=== PATIENT | female | born 1955 | race Caucasian/White ===

== ENCOUNTER → 2016-09-13 | Outpatient (CLI) | payer OTHER ==
[~2016-09-13] MED LIST: ALAV10TA PO; ALPR2TAB3 PO; ASPI81 PO; CYCL-36 PO; FLEC50TA PO; FURO1TAB93 PO; LORTA5 PO; MOBI15TA PO; NAPR500 PO; POTA10CA26 PO; PRAV40TA PO; RAMI10CA PO
[2016-09-13 17:35] LABS: INDIRECT BILIRUBIN 0.3 MG/DL (0.0-0.8); TOTAL BILIRUBIN ADULT 0.5 MG/DL (0.2-1.0)
== END ==
LOC: PLAB 14:33
PROVIDERS: ATTEND Family Medicine
DX: R94.5 Abnormal results of liver function studies (principal)
CPT/HCPCS: 36415; 80076

== ENCOUNTER → 2017-01-10 | Outpatient (CLI) | payer OTHER ==
[2017-01-10 13:00] LABS: HEMATOCRIT 41.9 % (35.0-46.0); MEAN CELL VOLUME 85.2 FL (80.0-100.0); MEAN CORPUSCULAR HEMOGLOBIN 27.5 PG (27.0-34.0); MEAN CORPUSCULAR HGB CONC 32.3 % (32.0-36.0); PLATELET COUNT 209 TH/MM3 (150-450); RED BLOOD COUNT 4.92 MIL/MM3 (4.00-5.30); RED CELL DISTRIBUTION WIDTH 14.4 % (11.6-17.2); REVIEW FLAG FINAL; WHITE BLOOD COUNT 7.9 TH/MM3 (4.0-11.0)
[2017-01-10 13:36] LABS: ALT (GPT) 48 U/L (10-53); ANION GAP 7 MEQ/L (5-15); AST (GOT) 33 U/L (15-37); BICARBONATE 29.2 MEQ/L (21.0-32.0); BLOOD UREA NITROGEN 15 MG/DL (7-18); CHLORIDE 105 MEQ/L (98-107); GLOMERULAR FILTRATION RATE 62 ML/MIN (>89); GLUCOSE,FASTING 92 MG/DL (74-99); POTASSIUM 3.8 MEQ/L (3.5-5.1); SODIUM (NA) 141 MEQ/L (136-145)
[2017-01-10 13:45] LABS: ALKALINE PHOSPHATASE 83 U/L (45-117); HDL CHOLESTEROL 50.5 MG/DL (40.0-60.0); LDL CHOLESTEROL 85 MG/DL (0-99); TOTAL BILIRUBIN ADULT 0.4 MG/DL (0.2-1.0)
== END ==
LOC: PLAB 11:37
PROVIDERS: ATTEND Family Medicine
DX: I10 Essential (primary) hypertension (principal); E78.5 Hyperlipidemia, unspecified; I47.1 Supraventricular tachycardia; R73.02 Impaired glucose tolerance (oral); Z68.41 Body mass index [BMI] 40.0-44.9, adult
CPT/HCPCS: 80053; 80061; 84443; 85027

== ENCOUNTER → 2017-04-26 | Outpatient (CLI) | payer OTHER ==
[2017-04-26 16:14] LABS: AUTOMATED NEUTROPHIL # 5.8 TH/MM3 (1.8-7.7); BASOPHIL # 0.1 TH/MM3 (0-0.2); BASOPHIL % 0.6 % (0.0-2.0); EOSINOPHIL # 0.3 TH/MM3 (0-0.4); EOSINOPHIL % 3.2 % (0.0-4.0); HEMATOCRIT 44.6 % (35.0-46.0); HEMO FLAGS DIFF FINAL; LYMPH % 23.4 % (9.0-44.0); LYMPHOCYTE # 2.1 TH/MM3 (1.0-4.8); MEAN CELL VOLUME 86.3 FL (80.0-100.0); MEAN CORPUSCULAR HEMOGLOBIN 27.9 PG (27.0-34.0); MEAN CORPUSCULAR HGB CONC 32.4 % (32.0-36.0); MONO % 8.7 % (0.0-8.0); NEUT % 64.1 % (16.0-70.0); PLATELET COUNT 248 TH/MM3 (150-450); RED BLOOD COUNT 5.17 MIL/MM3 (4.00-5.30); RED CELL DISTRIBUTION WIDTH 13.9 % (11.6-17.2); WHITE BLOOD COUNT 9.1 TH/MM3 (4.0-11.0)
[2017-04-26 16:37] LABS: ALT (GPT) 39 U/L (10-53); ANION GAP 9 MEQ/L (5-15); AST (GOT) 29 U/L (15-37); BICARBONATE 27.1 MEQ/L (21.0-32.0); BLOOD UREA NITROGEN 14 MG/DL (7-18); CHLORIDE 105 MEQ/L (98-107); GLOMERULAR FILTRATION RATE 55 ML/MIN (>89); GLUCOSE,FASTING 104 MG/DL (74-99); POTASSIUM 3.8 MEQ/L (3.5-5.1); SODIUM (NA) 141 MEQ/L (136-145)
[2017-04-26 16:46] LABS: ALKALINE PHOSPHATASE 83 U/L (45-117); HDL CHOLESTEROL 51.4 MG/DL (40.0-60.0); LDL CHOLESTEROL 97 MG/DL (0-99); TOTAL BILIRUBIN ADULT 0.4 MG/DL (0.2-1.0)
[2017-04-26 18:00] LABS: HEMOGLOBIN A1a 1.1 %; HEMOGLOBIN A1b 1.1 %; HEMOGLOBIN Ao 83.9 %; HEMOGLOBIN LA1C 2.1 %; HEMOGLOBIN P3 3.9 %
== END ==
LOC: PLAB 11:43
PROVIDERS: ATTEND Internal Medicine Cardiovascular Disease
DX: I10 Essential (primary) hypertension (principal); I48.0 Paroxysmal atrial fibrillation; E78.5 Hyperlipidemia, unspecified; I47.1 Supraventricular tachycardia; R73.02 Impaired glucose tolerance (oral); R94.5 Abnormal results of liver function studies; E66.9 Obesity, unspecified; Z79.899 Other long term (current) drug therapy; Z68.41 Body mass index [BMI] 40.0-44.9, adult
CPT/HCPCS: 80053; 80061; 83036; 84443; 85025

== ENCOUNTER → 2017-09-20 | Outpatient (CLI) | payer OTHER ==
[2017-09-20 13:49] LABS: HEMATOCRIT 41.7 % (35.0-46.0); HEMOGLOBIN 13.8 GM/DL (11.6-15.3); MEAN CELL VOLUME 87.5 FL (80.0-100.0); MEAN CORPUSCULAR HGB CONC 33.2 % (32.0-36.0); MEAN PLATELET VOLUME 8.5 FL (7.0-11.0); PLATELET COUNT 246 TH/MM3 (150-450); RED BLOOD COUNT 4.76 MIL/MM3 (4.00-5.30); RED CELL DISTRIBUTION WIDTH 14.4 % (11.6-17.2); WHITE BLOOD COUNT 8.9 TH/MM3 (4.0-11.0)
[2017-09-20 14:20] LABS: ALBUMIN 3.6 GM/DL (3.4-5.0); AST (GOT) 20 U/L (15-37); BLOOD UREA NITROGEN 19 MG/DL (7-18); CALCIUM 8.8 MG/DL (8.5-10.1); CHLORIDE 106 MEQ/L (98-107); CHOLESTEROL 151 MG/DL (120-200); CREATININE 1.07 MG/DL (0.50-1.00); GLOMERULAR FILTRATION RATE 52 ML/MIN (>89); GLUCOSE,FASTING 127 MG/DL (74-99); SODIUM (NA) 140 MEQ/L (136-145)
[2017-09-20 14:27] LABS: ALKALINE PHOSPHATASE 86 U/L (45-117); ALT (GPT) 35 U/L (10-53); CHOLESTEROL/ HDL RATIO 2.89 RATIO; HDL CHOLESTEROL 52.1 MG/DL (40.0-60.0); LDL CHOLESTEROL 87 MG/DL (0-99); TOTAL BILIRUBIN ADULT 0.4 MG/DL (0.2-1.0); TOTAL PROTEIN 7.3 GM/DL (6.4-8.2); TRIGLYCERIDES 59 MG/DL (42-150)
[2017-09-20 18:53] LABS: HEMOGLOBIN A1C 6.4 % (4.3-6.0)
== END ==
LOC: PLAB 09:47
PROVIDERS: ATTEND Family Medicine
DX: R92.8 Other abnormal and inconclusive findings on diagnostic imaging of breast (principal); I10 Essential (primary) hypertension; E78.5 Hyperlipidemia, unspecified; I47.1 Supraventricular tachycardia; R73.02 Impaired glucose tolerance (oral); R94.5 Abnormal results of liver function studies; Z68.42 Body mass index [BMI] 45.0-49.9, adult
CPT/HCPCS: 36415; 80053; 80061; 83036; 84443; 85027

== ENCOUNTER → 2017-12-23 | Outpatient (CLI) | payer OTHER ==
[2017-12-23 13:34] LABS: CALCIUM 9.7 MG/DL (8.5-10.1)
[2017-12-23 13:38] LABS: PHOSPHORUS 3.1 MG/DL (2.5-4.9)
== END ==
LOC: CLAB 12:35
PROVIDERS: ATTEND Family Medicine
DX: M81.8 Other osteoporosis without current pathological fracture (principal); M85.9 Disorder of bone density and structure, unspecified; E55.9 Vitamin D deficiency, unspecified; M81.0 Age-related osteoporosis without current pathological fracture
CPT/HCPCS: 36415; 82306; 82310; 84100

== ENCOUNTER → 2018-02-06 | Outpatient (CLI) | payer OTHER ==
[2018-02-06 11:40] LABS: BASOPHIL # 0.1 TH/MM3 (0-0.2); EOSINOPHIL # 0.2 TH/MM3 (0-0.4); EOSINOPHIL % 3.4 % (0.0-4.0); HEMATOCRIT 41.9 % (35.0-46.0); HEMOGLOBIN 13.8 GM/DL (11.6-15.3); LYMPH % 29.2 % (9.0-44.0); LYMPHOCYTE # 2.1 TH/MM3 (1.0-4.8); MEAN CELL VOLUME 85.4 FL (80.0-100.0); MEAN CORPUSCULAR HEMOGLOBIN 28.1 PG (27.0-34.0); MEAN CORPUSCULAR HGB CONC 32.9 % (32.0-36.0); MONO % 10.8 % (0.0-8.0); MONOCYTE # 0.8 TH/MM3 (0-0.9); NEUT % 55.6 % (16.0-70.0); PLATELET COUNT 226 TH/MM3 (150-450); RED BLOOD COUNT 4.91 MIL/MM3 (4.00-5.30); RED CELL DISTRIBUTION WIDTH 14.4 % (11.6-17.2); WHITE BLOOD COUNT 7.1 TH/MM3 (4.0-11.0)
[2018-02-06 12:04] LABS: ALBUMIN 3.5 GM/DL (3.4-5.0); BICARBONATE 25.9 MEQ/L (21.0-32.0); BLOOD UREA NITROGEN 20 MG/DL (7-18); CALCIUM 8.8 MG/DL (8.5-10.1); CHLORIDE 108 MEQ/L (98-107); GLUCOSE,FASTING 110 MG/DL (74-99); SODIUM (NA) 143 MEQ/L (136-145)
[2018-02-06 12:15] LABS: ALKALINE PHOSPHATASE 75 U/L (45-117); ALT (GPT) 30 U/L (10-53); AST (GOT) 19 U/L (15-37); CHOLESTEROL 153 MG/DL (120-200); CHOLESTEROL/ HDL RATIO 3.24 RATIO; CREATININE 0.96 MG/DL (0.50-1.00); GLOMERULAR FILTRATION RATE 59 ML/MIN (>89); HDL CHOLESTEROL 47.1 MG/DL (40.0-60.0); LDL CHOLESTEROL 87 MG/DL (0-99); TOTAL BILIRUBIN ADULT 0.4 MG/DL (0.2-1.0); TOTAL PROTEIN 7.1 GM/DL (6.4-8.2); TRIGLYCERIDES 97 MG/DL (42-150)
[2018-02-06 16:17] LABS: HEMOGLOBIN A1C 6.3 % (4.3-6.0)
== END ==
LOC: CLAB 10:49
PROVIDERS: ATTEND Family Medicine
DX: K21.0 Gastro-esophageal reflux disease with esophagitis (principal); R73.01 Impaired fasting glucose; E78.2 Mixed hyperlipidemia; I10 Essential (primary) hypertension
CPT/HCPCS: 36415; 80053; 80061; 83036; 84443; 85025

== ENCOUNTER 2018-04-06 05:25 | Inpatient (IN) ==
[2018-04-06] MEDS ORDERED: ceFAZolin 2 GM Premix Inj 2 GM/50 ML PIGGYBACK IV.SIG SCH (06:00)
[2018-04-06] MEDS ORDERED: Vancomycin Inj 1 GM/200 ML PIGGYBACK IV.SIG SCH (06:00)
[2018-04-06] MEDS ORDERED: Sodium Chlor 0.9% Inj 500 ML IV.SIG SCH (06:00)
[2018-04-06] MEDS ORDERED: Chlorhexidine 4% Topical 120 APPLIC/120 ML Bottle TOPICAL SCH (06:00)
[2018-04-06] MEDS ORDERED: Metoprolol Tartrate 25 MG Tablet PO SCH (06:00)
[2018-04-06] MEDS ORDERED: Chlorhexidine Gluconate 2% 1 Pack (2 Cloths) TOPICAL SCH (06:00)
[2018-04-06] MEDS ORDERED: Bupivacaine/Epinephrine Inj 0.25% 50 ML Vial ONE (07:04)
[2018-04-06] MEDS ORDERED: Bupivacaine/Dextrose 0.75% Inj 2 ML Ampul ONE (07:26)
[2018-04-06] MEDS ORDERED: TRANEXAMIC ACID IV.SIG SCH (07:30)
[2018-04-06] MEDS ORDERED: Sodium Chlor 0.9% Inj 40 ML, Bupivacaine Liposo PF 1.3% Inj 20 ML P-ARTICULR SCH ×2 (07:30)
[2018-04-06] MEDS ORDERED: SODIUM CHLOR 0.9% IV.SIG SCH (07:30)
[2018-04-06] MEDS ORDERED: ALPRAZolam 0.25 MG Tablet PO PRN (09:47)
[2018-04-06] MEDS ORDERED: Morphine Inj 4 MG/ML Vial IV.PUSH PRN (09:49)
[2018-04-06] MEDS ORDERED: Bisacodyl 10 MG Supp RECTAL PRN (09:49)
[2018-04-06] MEDS ORDERED: Post-op Orders (for Pharmacy) OTHER STA (09:49)
[2018-04-06] MEDS ORDERED: oxyCODONE/Acetaminophen 10/325 Tablet PO PRN (09:49)
--- NOTE | 2018-04-06 10:02 | P.OP ---
- Preoperative Diagnosis (1) Osteoarthritis of left knee - Postoperative Diagnosis (1) Osteoarthritis of left knee Date of procedure: 04/06/18 Procedure: Left total knee replacement arthroplasty Anesthesia: regional, spinal Surgeon: Pepe Malik MD Customer Pricing Manager: Kareen Sebastian PA-C Operation and Findings: EBL: 50 cc INDICATION: This patient presents with long-standing arthritis of the knee. Attachment record documents conservative measures. The patient now presents for surgical treatment. NOTE: Kareen Sebastian PA-C was present for the entire surgical procedure as my rn first assist. In my medical opinion her skill and care was necessary for proper management of this patient. TOURNIQUET TIME: 75 minutes COMPANY: [employer] FEMUR: Size 6, posterior stabilized TIBIA: Size 5, fixed-bearing PATELLA: 32 mm POLYETHYLENE INSERT: 14 mm PROCEDURE: This patient was brought the operating room and anesthetized in the supine position. The patient was positioned supine on the table. The tourniquet was placed about the thigh, and the leg was scrubbed with alcohol followed by Hibiclens followed by ChloraPrep and draped sterilely. A timeout was done, and antibiotics were given. After exsanguination the tourniquet was inflated to 300 mmHg. An anterior incision was made and a median parapatellar arthrotomy was performed. The patella was released laterally and subluxed allowing freehand cut of the patella which was then sized. A metal cap was placed over the exposed patellar surface for protection. A oversize load pilot escort hole was placed in the distal femur allowing a 4 valgus cut removing 10 mm from the distal femur. Anterior posterior and chamfer cuts were made. The posterior stabilize osteotomy was made. The attention was directed to the tibia. Retractors were positioned. The external alignment guide was used allowing the lateral tibia to be used as referencing guide and cut utilizing an oscillating saw taking care to avoid any injury to the surrounding soft tissues. This was sized properly. Trial reduction showed that the insert fit nicely. The patient had range of motion extension 0 flexion 110 . A medial release was not necessary. The bony surfaces prepared. On the back table 2 packets of methylmethacrylate were mixed. The components were cemented. Excess cement was removed. The tourniquet let down and hemostasis was controlled. The final plastic insert was inserted. Range of motion was the same as previously noted. A drain was brought through a separate stab incision. The arthrotomy was repaired with interrupted #1 Vicryl suture, subcutaneous tissue 2-0 Vicryl suture and skin with metallic jose armando A sterile dressing was applied. Sponge counts, needle counts and instrument counts were all correct. The patient tolerated procedure well and was taken to recovery in satisfactory condition. FINDINGS: There was severe circumferential tricompartmental osteoarthritis. There was a 15 flexion contracture. The final solution appeared to be excellent
--- NOTE | 2018-04-06 10:03 | P.DCO ---
- Physical Therapy Physical Therapy: Gait training Knee: Total knee, Protocol: Left, Full weight bearing Canvas Knee Splint: Other (At night for 4 weeks) Right Lower Extremity Range of Motion: Active ROM Left Lower Extremity Weight Bearing: Weight bearing as tolerated - Nursing RN: 3 days/week x 2 weeks Dressing changes: Do not change dressing, Other - Certification Need for Home Health services: I have seen patient Susie Headley on 04/06/18. My clinical findings support the need for the requested home health care services because: Need for Home Health Services: Limited mobility due to disease progression Homebound Certification: I certify that my clinical findings support that this patient is homebound because:
[2018-04-06] MEDS ORDERED: fentaNYL Citrate Inj 100 MCG/2 ML Ampul ONE (10:34)
--- NOTE | 2018-04-06 11:10 | XR ---
EXAM DATE: 04/06/2018 10:56 AM EDT AGE/SEX: 62 years / Female INDICATIONS: Post op left knee. CLINICAL DATA: This is the patient's initial encounter. Patient reports that signs and symptoms have been present for 1 day and indicates a pain score of Nonresponsive. MEDICAL/SURGICAL HISTORY: None. None. COMPARISON: No prior exams available for comparison. FINDINGS: The patient is post left knee arthroplasty. The orthopedic hardware is in excellent position. There a re surgical jose armando in place. CONCLUSION: Patient is post left knee arthroplasty. Orthopedic hardware is in excellent position. Electronically signed by: David De La Paz MD 04/06/2018 11:08 AM EDT
[2018-04-06] MEDS: oxyCODONE/Acetaminophen 10/325 Tablet PO PRN ×2 (14:48→20:25)
[2018-04-06] MEDS ORDERED: Phenylephrine/NS 1000 MCG/10ML Syringe IV.PUSH ONE (17:13)
[2018-04-06] MEDS: Flecainide 100 MG Tablet PO SCH (20:24)
[2018-04-06] MEDS: Senna/Docusate Sodium 8.6/50 MG Tablet PO SCH (20:24)
[2018-04-06] MEDS: Multivitamin/Minerals Therapeutic Tablet PO SCH (20:26)
[2018-04-06] MEDS: Furosemide 40 MG Tablet PO SCH (20:26)
[2018-04-06] MEDS ORDERED: Ramipril 5 MG Capsule PO SCH (21:00)
[2018-04-06] MEDS ORDERED: Temazepam 15 MG Capsule PO PRN (21:00)
[2018-04-07] MEDS: oxyCODONE/Acetaminophen 10/325 Tablet PO PRN ×4 (00:34→16:16)
--- NOTE | 2018-04-07 07:41 | P.DS ---
Date of admission: 04/06/18 12:22 Primary care physician: Taylor Fish MD Attending physician on discharge: Pepe Malik Anticipated date of discharge: 04/07/18 Brief History from admission: Ms. Headley has had ongoing left knee pain for 3 or 4 years. She had previous arthroscopic knee surgery back in the . She did well for over 20 years. As her pain began to increase she began to notice a limp. She started using ice and heat. Xrays showed advancing arthritis of the knee. She saw her primary care physician who gave her as needed Nerinx for her pain. She was also prescribed meloxicam. Overtime her function continued to decline. Surgical treatment was eventually recommended in the form of left total knee arthroplasty. The patient agreed and now presents for the above. DS: Diagnosis - Discharge Diagnosis (1) Osteoarthritis of left knee Status: Acute DS: Medications - Discharge Medications Prescriptions: aspirin 81 mg PO BID 30 Days #60 tab oxycodone-acetaminophen 1 tab PO Q4H PRN #42 tab PRN Reason: Acute Pain DS: Summary Hospital Course: Surgical treatment was performed on the day of admission without complication. She recovered well in PACU and was transferred to the orthopaedic floor. Pain was controlled with IV and oral medication. She was compliant with physical therapy and her knee immobilizer when in bed. After 1 day she was found to be stable and discharged home with home health care. She was instructed to continue her therapy, to ice her knee twice daily for 7 days, and to pursue a high fiber diet. She was given prescriptions for oxycodone and aspirin. - Time Spent with Patient Total time spent providing and/or coordinating discharge services: Greater than 30 minutes - Quality: VTE Deep Vein Thrombosis/Pulmonary Embolism Present on Admission: No Exam Vital signs: Vital Signs 04/06/18 10:13 04/06/18 10:15 04/06/18 10:45 Temperature 97.9 F Pulse Rate 78 75 73 Respiratory Rate 16 14 14 Blood Pressure 99/53 L 97/52 L 109/55 L Pulse Oximetry 98 99 99 04/06/18 11:00 04/06/18 11:09 04/06/18 11:15 Temperature Pulse Rate 75 73 72 Respiratory Rate 14 14 14 Blood Pressure 113/60 106/56 L 107/58 L Pulse Oximetry 98 99 98 04/06/18 11:30 04/06/18 11:45 04/06/18 12:00 Temperature 98.1 F Pulse Rate 74 73 75 Respiratory Rate 14 14 14 Blood Pressure 112/59 L 112/60 113/64 Pulse Oximetry 99 98 97 04/06/18 15:20 04/06/18 16:00 04/06/18 20:00 Temperature 97.9 F 98.1 F Pulse Rate 98 H 89 Respiratory Rate 20 16 18 Blood Pressure 152/71 H 159/73 H Pulse Oximetry 94 L 94 L 04/07/18 00:00 04/07/18 04:00 Temperature 98.2 F 97.9 F Pulse Rate 85 87 Respiratory Rate 16 14 Blood Pressure 126/60 143/71 H Pulse Oximetry 100 100 Intake & Output 04/06/18 04/07/18 04/07/18 18:59 06:59 18:59 Intake Total 1700 / 1700 Output Total 5 / 5 Balance 1695 / 1695 Weight 119.8 kg Intake: IV 700 / 700 LR 1000 mL Inj 1,000 ML @ 30 600 / 600 mls/hr IV.SIG .Q24H RANDAL Rx#: [id number] Ancef Inj 1,000 MG In NS Inj 100 / 100 100 ML @ 200 mls/hr IV.SIG Q6H RANDAL Rx#:[id number] Anesthesia Amount 1000 / 1000 Output: Estimated Blood Loss 5 / 5 - Constitutional no acute distress Results Procedures completed during hospitalization: Left total knee replacement Labs on day of discharge: Labs from last 24 hours 04/06/18 06:04 Blood Type O Positive Antibody Screen Negative MTS Gel Crossmatch See Detail - Impressions ITS Impressions Knee X-Ray 04/06/18 09:49 CONCLUSION: Patient is post left knee arthroplasty. Orthopedic hardware is in excellent position. Discharge Plan - Discharge Disposition Patient Disposition: W/Home Health Service - Discharge Condition Condition: Stable - Discharge Order Discharge Orders: Discharge Order (Routine); Ordered 04/07/18 Ordered By: Pepe Malik - Discharge Details Anticipated Discharge Date: 04/07/18 - Physicians Team Primary Care Provider: Taylor Fish Attending Provider: Pepe Malik - Rxs /Orders / Referrals /Forms Prescriptions: New aspirin 81 mg Tablet,Chewable 81 mg PO BID 30 Days Qty: 60 RF: 0 oxycodone-acetaminophen 10-325 mg Tablet 1 tab PO Q4H PRN (Reason: Acute Pain) Qty: 42 RF: 0 Continue alprazolam 0.25 mg Tablet 0.25 mg PO BID PRN (Reason: Anxiety) biotin 10,000 mcg Tablet,Disintegrating 10,000 mcg PO DAILY cholecalciferol (vitamin D3) [Vitamin D3] 1,000 unit Capsule 1,000 unit PO BID cyclobenzaprine 10 mg Tablet 10 mg PO HS flecainide 100 mg Tablet 100 mg PO Q12H furosemide 40 mg Tablet 40 mg PO BID hydrocodone-acetaminophen 5-325 mg Tablet 1 tab PO Q4-6H PRN (Reason: Pain) loratadine 10 mg Capsule 10 mg PO DAILY meloxicam 15 mg Tablet 15 mg PO DAILY potassium chloride 10 mEq Tablet Extended Release 10 meq PO DAILY pravastatin 40 mg Tablet 40 mg PO DAILY ramipril 10 mg Capsule 10 mg PO DAILY Discontinued aspirin [Adult Low Dose Aspirin] 81 mg Tablet,Delayed Release (Dr/Ec) 81 mg PO DAILY Ambulatory Orders / Order Sets / DME: Adjustable Commode 3-in-1 (1 each) (Routine) Location: Determined by Patient Ordered By: Sharron Corrales With Front Wheels (1 each) (Routine) Location: Determined by Patient Ordered By: Pepe Malik Referrals: Taylor Fish MD [Primary Care Provider] - See Instructions - Discharge Instructions Patient Printed Instructions: Oxycodone/Acetaminophen (By mouth), Aspirin (By mouth), How to Choose and Use a Walker (GEN), Knee Replacement (DC) Additional Instructions: Full weight Bearing as tolerated left lower extremity Wear Canvas Knee splint at night for 4 weeks as directed No dressing changes unless saturated Follow up appt is set for 04/19 at 11:[address] Pepe Malik at [facility] office - Post Discharge Care Plan Care Plan Goals: Discharge Care Plan Goals for Left Total Knee Replacement You have undergone left knee replacement surgery. Your doctor replaced your painful joint with an artificial joint to relieve pain and restore movement. Here are some goals to help you heal well. Directions to Meet your Goals: 1. Activity & Exercises: * Take pain medicine as directed by your doctor. * Sit in chairs with arms. The arms make it easier for you to stand up or sit down. * Dont sit for more than 30 to 45 minutes at one time. * Nap if you are tired, but dont stay in bed all day. * Sleep with a pillow under your ankle, not your knee. Be sure to change the position of your leg during the night. * Wear the support stockings you were given in the hospital as directed by your surgeon. 2. Prevent Falls/Injury: The pichardo to successful recovery is movement with walking and exercising your knee as directed by your doctor. * Arrange your household to keep the items you need handy. Keep everything else out of the way. * Remove items that may cause you to fall, such as throw rugs and electrical cords. * Use nonslip bath mats, grab bars, an elevated toilet seat, and a shower chair in your bathroom * Sit on a shower stool or chair when you shower to keep from falling. * Until your balance, flexibility, and strength improve, use a cane, crutches, a walker, handrails, or someone to help you. * Keep your hands free by using a backpack, rahul pack, apron, or pockets to carry things * Walk up and down stairs with support. Try one step at a time. Use the railing if possible. * Dont drive until your doctor says its OK. * Dont drive while you are taking opioid pain medicine. 3. Precautions: * Prevent infection. Any infection will need to be treated immediately. Call your doctor right away if you think you might have an infection. * Tell your dentist that you have an artificial joint and take antibiotics as prescribed before any dental work. * Tell all your healthcare providers about your artificial joint before any medical procedure. * Maintain a healthy weight. Get help to lose any extra pounds. Added body weight puts stress on the knee. * Your medications may include blood-thinning medicine to prevent blood clots or antibiotics to prevent infection-prevent any falls or cuts 4. Incision Care: * Prevent infection by washing your hands often. If an infection occurs, it will need to be treated right away. * Call your doctor right away if you think you may have an infection. Symptoms include a fever or an incision that leaks white, green, or yellow fluid. * Don't soak your incision in water until your doctor says its OK. This means no hot tubs, bathtubs, or swimming pools. * Follow your doctor's instructions for changing the dressing. Do not change your dressing unless it becomes saturated or very red. Normally it does not get removed until your first postop visit with the PA. * Dont rub the incision, or apply creams or lotions to it. * If you notice any redness or drainage around the bandage site, contact your surgeon's office immediately. 5. Follow-Up: Do Not miss your follow-up appointment. Keep up with all your appointments and yearly check ups When to call your doctor: Call your doctor right away if you have: Fever of 100.4F (38C) or higher, or as directed by your doctor Shaking chills Stiffness, or inability to move the knee Increased swelling in your leg Increased redness, tenderness, or swelling in or around the knee incision Drainage from the knee incision Increased knee pain Call 911: Call 911 right away if you have: Chest pain Shortness of breath Any pain or tenderness in your calf
--- NOTE | 2018-04-07 07:54 | P.PNOP ---
Subjective Interval history: She is doing well. Her pain is well controlled for pod#1. She and her state she is doing 'just fine'. No new leg pain. No new CP or SOB. Ready for d/c home. Physical Exam Vital signs: Vital Signs 04/06/18 10:13 04/06/18 10:15 04/06/18 10:45 Temperature 97.9 F Pulse Rate 78 75 73 Respiratory Rate 16 14 14 Blood Pressure 99/53 L 97/52 L 109/55 L Pulse Oximetry 98 99 99 04/06/18 11:00 04/06/18 11:09 04/06/18 11:15 Temperature Pulse Rate 75 73 72 Respiratory Rate 14 14 14 Blood Pressure 113/60 106/56 L 107/58 L Pulse Oximetry 98 99 98 04/06/18 11:30 04/06/18 11:45 04/06/18 12:00 Temperature 98.1 F Pulse Rate 74 73 75 Respiratory Rate 14 14 14 Blood Pressure 112/59 L 112/60 113/64 Pulse Oximetry 99 98 97 04/06/18 15:20 04/06/18 16:00 04/06/18 20:00 Temperature 97.9 F 98.1 F Pulse Rate 98 H 89 Respiratory Rate 20 16 18 Blood Pressure 152/71 H 159/73 H Pulse Oximetry 94 L 94 L 04/07/18 00:00 04/07/18 04:00 Temperature 98.2 F 97.9 F Pulse Rate 85 87 Respiratory Rate 16 14 Blood Pressure 126/60 143/71 H Pulse Oximetry 100 100 Intake & Output 04/06/18 04/07/18 04/07/18 18:59 06:59 18:59 Intake Total 1700 / 1700 100 / 100 Output Total 5 / 5 Balance 1695 / 1695 100 / 100 Weight 119.8 kg Intake: IV 700 / 700 100 / 100 LR 1000 mL Inj 1,000 ML @ 30 600 / 600 mls/hr IV.SIG .Q24H RANDAL Rx#: [id number] Ancef Inj 1,000 MG In NS Inj 100 / 100 100 / 100 100 ML @ 200 mls/hr IV.SIG Q6H RANDAL Rx#:[id number] Anesthesia Amount 1000 / 1000 Output: Estimated Blood Loss 5 / 5 Narrative: Sitting up in chair With her NAD LLE Knee dressing c/d/i, mild swelling, some warmth, no erythema +motor at distal, +sens, +nvi Neg homans - Constitutional no acute distress Results - Imaging Impressions Knee X-Ray 04/06/18 09:49 CONCLUSION: Patient is post left knee arthroplasty. Orthopedic hardware is in excellent position. - Procedures Left total knee arthroplasty Assessment and Plan - Ortho Post Op Day # 1 - Problem List (1) Osteoarthritis of left knee Code(s): M17.12 - Unilateral primary osteoarthritis, left knee Status: Acute - Assessment and Plan pod#1 s/p L TKA Doing well for day one. Pain fairly well controlled. Ok to d/c home w c after therapy today. PO pain meds as written. ASA 81mg Hold dressing changes unless saturated. PT - WBAT LLE. TKA protocol. CKS when in bed for 3-4 weeks. F/U in 2 weeks as scheduled. DME written.
--- NOTE | 2018-04-07 07:56 | P.DCO ---
- Physical Therapy Physical Therapy: Gait training, Safety evaluation Knee: Total knee, Protocol: Left, Full weight bearing Canvas Knee Splint: When in bed with 2 pillows between thighs Left Lower Extremity Weight Bearing: Weight bearing as tolerated Additional instructions: PT 4 days / wk for 2 weeks. WBAT LLE. TKA protocol. Walker assist as needed. - Nursing RN days per week: 2 x week(s): 1 Nursing: Dressing changes Dressing changes: Do not change dressing Additional instructions: Vitals assessment. Dressing assessment - do not change unless saturated. - Certification Need for Home Health services: I have seen patient Susie Headley on 04/07/18. My clinical findings support the need for the requested home health care services because: Need for Home Health Services: Deconditioned with increased weakness, High risk of falls Homebound Certification: I certify that my clinical findings support that this patient is homebound because: Homebound Certification: Post-op weakness, Unsteady gait/balance
[2018-04-07] MEDS: Senna/Docusate Sodium 8.6/50 MG Tablet PO SCH (08:44)
[2018-04-07] MEDS: Multivitamin/Minerals Therapeutic Tablet PO SCH (08:45)
[2018-04-07] MEDS: Furosemide 40 MG Tablet PO SCH (08:47)
[2018-04-07] MEDS: Flecainide 100 MG Tablet PO SCH (08:47)
[2018-04-07] MEDS ORDERED: Meloxicam 15 MG Tablet PO SCH (09:00)
[2018-04-07] MEDS ORDERED: Loratadine 10 MG Tablet PO SCH (09:00)
[2018-04-07 09:56] VITALS: BP 115/59; PULSE 99; RESP 15; TEMP 97.6; O2SAT 95
== END 2018-04-07 17:14 | disposition home health service (06) ==
LOC: HSDC 05:25 → EDSTATUS 07:30 → N06 12:22
PROVIDERS: ADMIT Orthopaedic Surgery Orthopaedic Surgery of the Spine; ATTEND Orthopaedic Surgery Orthopaedic Surgery of the Spine

== ENCOUNTER 2018-07-10 05:13 | Observation (INO) ==
[2018-07-10] MEDS ORDERED: Chlorhexidine Gluconate 2% 1 Pack (2 Cloths) TOPICAL ONE (05:56)
[2018-07-10] MEDS ORDERED: Metoprolol Tartrate 25 MG Tablet PO ONE (05:56)
[2018-07-10] MEDS ORDERED: Sodium Chlor 0.9% Inj 500 ML IV.SIG SCH (06:00)
[2018-07-10] MEDS ORDERED: Heparin - SQ 10,000 UNITS/ML Vial SQ PRN (06:01)
[2018-07-10] MEDS ORDERED: ceFAZolin 2 GM IV; once IV.SIG PRN (06:02)
[2018-07-10] MEDS ORDERED: Sodium Chloride 0.9% 2 ML Flush PRN IV.FLUSH (06:02)
[2018-07-10] MEDS ORDERED: Artificial Tears Opth Oint 3.5 GM Tube ONE (06:49)
[2018-07-10] MEDS ORDERED: Sugammadex Inj 200 MG/2 ML Vial IV.PUSH ONE (06:49)
[2018-07-10] MEDS ORDERED: Famotidine PF Inj 20 MG/2 ML Vial ONE (06:50)
[2018-07-10] MEDS ORDERED: Phenylephrine/NS 1000 MCG/10ML Syringe IV.PUSH ONE (07:26)
[2018-07-10] MEDS ORDERED: Normosol-R pH 7.4 Inj 1,000 ML IV.CONT ONE (07:26)
[2018-07-10] MEDS ORDERED: Lidocaine PF 1% Inj 5 ML Syringe OTHER ONE (07:26)
[2018-07-10] MEDS ORDERED: Sodium Chloride 0.9% 2 ML Flush BID IV.FLUSH SCH (09:00)
[2018-07-10] MEDS ORDERED: Methylene Blue Inj 100 MG/10 ML Vial OTHER ONE (10:05)
[2018-07-10] MEDS ORDERED: Lidocaine 1%/Epinephrine 1:100,000 Inj 20 ML Vial INFILTRATN ONE (10:07)
[2018-07-10] MEDS ORDERED: LORazepam 0.5 MG Tablet PO PRN (11:25)
[2018-07-10 11:49] VITALS: RESP 18
[2018-07-10] MEDS ORDERED: fentaNYL Citrate Inj 100 MCG/2 ML Ampul ONE (11:58)
[2018-07-10] MEDS: Dextrose 5%/NaCl 0.45% Inj 1,000 ML IV.CONT SCH ×2 (12:25→23:49)
[2018-07-10] MEDS ORDERED: *morphine SULFATE 4 MG/ML PERIprocedure ONLY ONE (12:34)
[2018-07-10] MEDS: Ketorolac Inj 30 MG/ML (IVP) Vial IV.PUSH SCH ×3 (12:38→23:46)
[2018-07-10] MEDS ORDERED: *Meperidine Inj 25 MG/ML Vial PERIprocedural Use ONLY ONE (12:41)
--- NOTE | 2018-07-10 14:12 | MP ---
cc: Sera Penaloza MD,Shima Daniel,Charles MATTA DATE OF OPERATION: 07/10/2018 PREOPERATIVE DIAGNOSES: 1. Grade 1 endometrial adenocarcinoma. 2. Postmenopausal bleeding. 3. Enlarged uterus due to leiomyomas. POSTOPERATIVE DIAGNOSES: 1. Grade 1 endometrial adenocarcinoma. 2. Postmenopausal bleeding. 3. Enlarged uterus due to leiomyomas. PROCEDURE PERFORMED: Robotic-assisted laparoscopic hysterectomy with bilateral salpingo-oophorectomy. SURGEON: Sera Penaloza MD GUEST RELATIONS OFFICER: Riddhi physiotherapist's assistant. ANESTHESIA: General endotracheal anesthesia. ESTIMATED BLOOD LOSS: 300 mL. INTRAVENOUS FLUIDS: 1500 mL. URINE OUTPUT: 200 mL. HISTORY AND INDICATIONS: A 62-year-old female with postmenopausal bleeding intermittently estimated for approximately 2 years' duration. Imaging showed a thickened endometrial stripe as well as an enlarged uterus with a mass near the left side of the uterus and fundus thought to be a leiomyoma. Biopsy showed grade 1 endometrial adenocarcinoma. She was counseled regarding these findings and was in favor of surgical management. She was seen again in the preoperative holding area where the findings were again reviewed and the plan of care discussed. Questions were asked and answered. She expressed good understanding and would like to move forward with surgery. FINDINGS: The uterine cavity sounded to 10 cm. In the fundus and left side of the uterus extending down to the region of the vessels was a solitary mass that had the gross appearance of a leiomyoma. There was a small smooth-walled cyst in the right ovary. Otherwise, the tubes and ovaries appeared normal. There were no overtly appreciably enlarged pelvic or periaortic lymph nodes on palpation or inspection. There were no peritoneal implants to suggest metastatic disease. The uterus once removed was evaluated by the pathologist. They opened it and it showed no evidence of invasive disease. It looked mostly like diffuse complex hyperplasia. There was a polyp that may have been the source of tumor, but there was nothing to suggest invasive cancer. STATEMENT OF COMPLEXITY/MODIFIER: All aspects of this case were increased and complexity requiring additional time and attention given her body habitus of 118 kg with a BMI of 46.1. Modifier should be applied accordingly. DESCRIPTION OF PROCEDURE: She was taken to the operating room and placed in dorsal lithotomy position after general endotracheal anesthesia was administered. A timeout was undertaken. She was identified by site recognition and hospital ID bracel and the proposed procedure was reviewed and confirmed. She was carefully positioned in padded Zay stirrups. Her arms were padded and secured to the sides. She was further secured to the operating table with egg crate padding and tape in a cross chest over the shoulder fashion. All sites noted to be properly aligned with no malalignment or pressure points. She was prepped in sterile fashion and draped below the waist. Cervix was grasped. Uterine cavity sounded. Cervix was dilated and a standard VCare manipulator was inserted and secured in usual fashion. Hooks catheter placed in the bladder. She was returned to low lithotomy position. Change of sterile gloves was undertaken. We completed draping in anticipation of laparoscopy and confirmed that an orogastric tube was in the stomach on suction. With manual elevation of the abdominal wall, 5 mm cannula placed in the left upper quadrant. Carbon dioxide gas was insufflated. The 10 mm cannulas were placed in the right upper quadrant and left lateral quadrant and a 12 mm cannula was placed in the midline above the umbilicus. The original 5 mm cannula was exchanged for an 8 mm cannula. She was placed in Trendelenburg position incrementally, which she tolerated from an anesthesia standpoint. Peritoneal washings were obtained for cytology. The anatomy was surveyed with findings as described above. The small bowel was folded back on its mesenteric root and 3 Ray-Charly sponges were placed along the root of the small bowel mesentery. Robotic system was brought into the operative field, attached in the usual fashion. Monopolar scissors, fenestrated bipolar forceps and ProGrasp manipulators were placed in arms #1, 2 and 3 respectively. It took my place at the surgeon's console. The right round ligament was isolated, cauterized, transected. The anterior and posterior leaves of the broad ligament were opened. The right ureter was identified. The right infundibulopelvic ligament was isolated. The intervening peritoneum was opened. The infundibulopelvic ligament was isolated to the level of the pelvic brim where it was cauterized and transected. Posterior peritoneum opened along the right side of the uterus and cervix and the right vesicouterine peritoneum dissected off the lower uterine segment and cervix. The right uterine vessels were skeletonized and cauterized. Attention was directed toward the left side where the left round ligament was isolated, cauterized and transected. The anterior and posterior leaves of the broad ligament were opened. The left ureter was identified. The left infundibulopelvic ligament was isolated. The intervening peritoneum was opened. The infundibulopelvic ligament was isolated to the level of the pelvic brim where it was cauterized and transected. Posterior peritoneum opened along the left side of the uterus and cervix and sharp dissection and focal cautery were used to free the attachments from the left-sided fundal fibroid that was extending near the uterine vessels. It was elevated toward the fundus as dissection was continued along the lateral side and then the undersurface of the leiomyoma to increase mobility to help gain exposure to the left uterine vessels. The left vesicouterine peritoneum was dissected off the lower uterine segment and cervix and the left uterine vessels were isolated and cauterized, which caused blanching of the uterus now that all the major blood supply was secured. Left uterine vessels were transected. The cardinal, paracervical and uterosacral ligaments were isolated, cauterized and transected, thereby freeing the attachments along the left side of the uterus and cervix. Attention was directed toward the right side where the right vessels were now transected and the cardinal, paracervical and uterosacral ligaments were isolated, cauterized and transected in stepwise fashion. Circumferential colpotomy was performed, the cervix from the upper vagina, and due to the large size of the uterus relative to the pelvic outlet, I left the surgeon's console to help facilitate the specimen transvaginally. With multiple tenaculums, countertraction, rotation and gentle retraction of the cuff tissue, the specimen was eventually able to be delivered transvaginally, which included uterus, cervix, tubes and ovaries, and the pneumo-occluder balloon was placed in the vagina to maintain pneumoperitoneum. I returned to the surgeon's console. Instruments 1 and 3 exchanged for needle drivers and a 0 Vicryl suture was introduced. There was extension of the vaginal cuff noted on the right corner, which was bleeding. The area was suctioned and then Ray-Charly sponge was placed against that corner to help in hemostasis. Vaginal cuff closure was started to the left corner, full-thickness closure incorporating the posterior peritoneum and edge of the uterosacral ligament tied via instrument tie. This closure was held on countertraction as a running continuous full-thickness closure was carried across the vaginal cuff. Small bleeders rendered hemostatic with bipolar cautery and then as the cuff closure was extended to the right corner, it was extended down into the vaginal mucosa and incorporated the extension and laceration into the cuff closure in a continuous fashion until it was similarly secured to the uterosacral ligament peritoneum, tied via instrument tie and the needle was cut and removed. Second suture was introduced to reinforce the angles of the vaginal cuff in the midportion. [id number]-[id number] reinforcement sutures were placed at the left vaginal corner and at the right vaginal corner and in the midpoint of the vaginal cuff to help reinforce the closure. The pelvis was thoroughly irrigated. All sites now were noted to be hemostatic. Small bleeders had been rendered hemostatic with bipolar cautery. To evaluate the integrity of the bladder, the bladder was filled with saline dyed with methylene blue. It filled nicely under pressure. There were no areas of blue to suggest thinning, certainly no extravasation of dye and there was a good margin between the vaginal cuff suture line and the edge of the bladder. The bladder was drained. There was good peristalsis of the ureters bilaterally. Pathology came back showing no invasive tumor and therefore, it was felt that all reasonable surgical objectives have been completed. To assist in continued hemostasis, hemostatic Maye powder was placed across the vaginal cuff and lateral pelvic sidewalls. The robotic instruments were removed and the robotic system was disengaged from the operative field. I reentered the bedside under sterile condition. Each of the 3 Ray-Charly sponges were removed through the 12 mm cannula. Each were inspected and noted to be removed in their entirety. Visual inspection confirmed there were no remaining foreign objects in the peritoneal cavity and preliminary counts were correct. The 12 mm fascial defect was closed with interrupted 0 Vicryl sutures using a needle fascial closure apparatus. They were tied securely, which rendered the fascia completely airtight and hemostatic. The remaining cannulas were withdrawn. Carbon dioxide gas was removed from the peritoneal cavity and 3-0 Vicryl subcutaneous, 3-0 Vicryl subcuticular and Steri-Strips were used to close these incisions. She was returned to dorsal lithotomy position. The vaginal cuff was well supported. There was slight bleeding in the right corner of the vaginal cuff, which was rendered hemostatic and reinforced with a single [id number] 0 Vicryl suture. Inspection confirmed complete hemostasis. There were no other vaginal lacerations except for some superficial mucosal irritation near the introitus. The remainder of the hemostatic Maye was placed along the vaginal cuff and in the vaginal canal and topical silver nitrate used on the perineum. All sites were completely hemostatic. There were no remaining foreign objects in the vagina. Final counts were correct. She was returned to dorsal supine position and was pending reversal of anesthesia when I left the operating room to precede her to the postanesthesia care unit. MD JUAN Jay/julianna , 12:40 PM , 01:26 PM
--- NOTE | 2018-07-10 15:04 | P.PNONC ---
Subjective Interval history: post op patient resting in bed with at bedside states was having cramping but that has subsided denies any n/v drinking no complaints Objective Vital Signs/Intake & Output: Vital Signs 07/10/18 06:15 07/10/18 11:37 07/10/18 11:45 Temperature 98.9 F 97.6 F Pulse Rate 92 H 100 H 99 H Respiratory Rate 20 18 18 Blood Pressure 143/82 H 117/63 112/55 L Pulse Oximetry 97 95 07/10/18 12:00 07/10/18 12:15 07/10/18 12:30 Temperature Pulse Rate 95 H 98 H 95 H Respiratory Rate 18 18 18 Blood Pressure 116/59 L 117/60 112/60 Pulse Oximetry 95 95 95 07/10/18 12:45 07/10/18 13:00 07/10/18 13:07 Temperature Pulse Rate 96 H 98 H Respiratory Rate 18 18 18 Blood Pressure 120/63 115/57 L Pulse Oximetry 95 95 07/10/18 13:15 Temperature 98 F Pulse Rate 98 H Respiratory Rate 18 Blood Pressure 114/56 L Pulse Oximetry 95 Intake & Output 07/09/18 07/10/18 07/10/18 18:59 06:59 18:59 Intake Total 1500 / 1500 Output Total 300 / 300 Balance 1200 / 1200 Weight 118.1 kg Intake: Anesthesia Amount 1500 / 1500 Output: Estimated Blood Loss 300 / 300 Other: Weight On Admission 118.1 kg Laboratory Results: Laboratory Results - last 24 hr 07/10/18 06:10 Blood Type O Positive Antibody Screen Negative Medications: Active Medications Generic Name Dose Route Start Last Admin Trade Name Cliffq PRN Reason Stop Dose Admin Heparin Sodium (Porcine) 5,000 units 07/10/18 06:01 07/10/18 06:32 Heparin Inj SQ 07/10/18 22:00 5,000 units ENGAGEMENT DIRECTOR PRN Administration PRE-OP ENGAGEMENT DIRECTOR TO OR Lactated Ringer's 1,000 mls @ 30 mls/hr 07/10/18 06:00 07/10/18 06:25 Lr 1000 Ml Inj IV.SIG 07/11/18 05:59 30 mls/hr .Q24H RANDAL Administration Sodium Chloride 500 mls @ 30 mls/hr 07/10/18 06:00 07/10/18 06:32 Ns Inj IV.SIG Not Given .Q10H RANDAL Cefazolin Sodium/Dextrose 2 gm in 50 mls @ 100 mls/hr 07/10/18 06:02 07:10 Ancef 2 Gm Premix Inj IV.SIG 07/10/18 22:00 100 mls/hr ENGAGEMENT DIRECTOR PRN Administration PRE-OP ENGAGEMENT DIRECTOR TO OR Dextrose/Sodium Chloride 1,000 mls @ 100 mls/hr 07/10/18 12:00 07/10/18 12:25 D5w/1/2 Ns Inj IV.CONT 100 mls/hr .Q10H RANDAL Administration Ketorolac Tromethamine 15 mg 07/10/18 12:00 07/10/18 12:38 Toradol Inj IV.PUSH 07/11/18 06:01 15 mg Q6HR RANDAL Administration Objective Remarks: GENERAL: Well-nourished, well-developed patient. SKIN: Warm and dry. HEAD: Normocephalic. EYES: No scleral icterus. No injection or drainage. CARDIOVASCULAR: Regular rate and rhythm without murmurs. RESPIRATORY: No accessory muscle use. GASTROINTESTINAL: Abdomen nondistended, SS are c/d/i EXTREMITIES: teds and scds MUSCULOSKELETAL: Adequate muscle tone. NEUROLOGICAL: No obvious focal deficit. Awake, alert, and oriented x3. PSYCHIATRIC: Appropriate mood and affect; insight and judgment normal. Assessment/Plan (1) Post-operative state Code(s): Z98.890 - Other specified postprocedural states Status: Acute - Plan s/p RA lap hyst with BSO post op orders in chart scheduled Toradol Percocet PRN pain ADAT ok to get OOB to chair will d/c [facility] in am anticipate discharge in next 24 hours
[2018-07-10] MEDS: Furosemide 40 MG Tablet PO SCH (20:02)
[2018-07-10] MEDS: Flecainide 100 MG Tablet PO SCH (20:03)
[2018-07-11] MEDS: Ketorolac Inj 30 MG/ML (IVP) Vial IV.PUSH SCH (05:06)
[2018-07-11] MEDS: Flecainide 100 MG Tablet PO SCH (05:06)
[2018-07-11] MEDS: Furosemide 40 MG Tablet PO SCH (08:31)
[2018-07-11 08:58] LABS: Baso % (Auto) 0.3 % (0.0-2.0); Eos % (Auto) 0.1 % (0.0-4.0); Hematocrit 38.1 % (35.0-46.0); Hemoglobin 12.4 gm/dL (11.6-15.3); Lymph # (Auto) 1.2 th/mm3 (1.0-4.8); Lymph % (Auto) 7.3 % (9.0-44.0); Mean Corpuscular HGB Conc 32.6 % (32.0-36.0); Mean Corpuscular Hemoglobin 27.9 pg (27.0-34.0); Mean Corpuscular Volume 85.7 fL (80.0-100.0); Mean Platelet Volume 8.4 fL (7.0-11.0); Mono # (Auto) 1.1 th/mm3 (0.0-0.9); Mono % (Auto) 6.5 % (0.0-8.0); Neut # (Auto) 13.9 th/mm3 (1.8-7.7); Neut % (Auto) 85.8 % (16.0-70.0); Platelet Count 218 th/mm3 (150-450); Red Blood Count 4.45 mil/mm3 (4.00-5.30); Red Cell Distribution Width 14.6 % (11.6-17.2); White Blood Count 16.2 th/mm3 (4.0-11.0)
[2018-07-11] MEDS ORDERED: Loratadine 10 MG Tablet PO SCH (09:00)
[2018-07-11] MEDS ORDERED: Ramipril 5 MG Capsule PO SCH (09:00)
[2018-07-11 09:03] VITALS: PULSE 72; TEMP 98.7; O2SAT 94
[2018-07-11 09:04] VITALS: BP 105/54
[2018-07-11 09:29] LABS: Calcium 8.5 mg/dL (8.5-10.1); Carbon Dioxide 24.4 meq/L (21.0-32.0); Potassium 3.9 meq/L (3.5-5.1)
--- NOTE | 2018-07-11 12:30 | MD ---
cc: Sera Penaloza MD,Taco Daniel,Charles MATTA DATE OF DISCHARGE: 07/11/2018 PROCEDURE: 07/10/2018: Robotic-assisted laparoscopic hysterectomy, bilateral salpingo-oophorectomy. DIAGNOSIS: Endometrial cancer. HOSPITAL COURSE: She did well in her early postop period. She was hemodynamically stable, tolerating oral intake. Ins and outs: 4450/1450. Labs are still pending. PHYSICAL EXAMINATION: VITAL SIGNS: Afebrile, pulse 71-100, respirations 18, blood pressure 118-137/64-71, O2 saturations greater than or equal to 94% while asleep, 96% while awake. GENERAL: Alert and oriented x3, no acute distress. LUNGS: Clear. Mild basilar rales. CARDIOVASCULAR: Controlled, regular rate and rhythm. ABDOMEN: Soft. Incisions clean and dry. GYNECOLOGICAL: No bleeding. EXTREMITIES: Nontender. ASSESSMENT: Postoperative day number one. Findings at the time of surgery and preliminary pathology discussed, activities and restrictions reviewed. Questions were asked and answered. She expressed good understanding. PLAN: I anticipate she will meet criteria for discharge to home today. She is to contact our office to schedule a followup in approximately 2 weeks. She is to resume prior medications as was confirmed prior to surgery. Even though she states AN ALLERGY TO CODEINE, she has previously taken and tolerated Percocet and a prescription for that is provided. MD JUAN Jay/vi , 08:28 AM , 08:34 AM
== END 2018-07-11 11:21 | disposition home or self-care (01) ==
LOC: HSDC 05:13 → HSDI 05:13 → HCIN 13:35
PROVIDERS: ADMIT Obstetrics & Gynecology Gynecologic Oncology; ATTEND Obstetrics & Gynecology Gynecologic Oncology